=== PATIENT | female | born 1990 | race American Indian/Alaskan Native ===

== ENCOUNTER → 2025-10-06 | Outpatient (CLI) | payer MEDICARE, MEDICAID, SELFPAY | END | disposition home or self-care (01) | LOC: MRI 14:11 | PROVIDERS: Referring Provider Nurse Practitioner Family; Visit Provider Nurse Practitioner Family | DX: S83.421A Sprain of lateral collateral ligament of right knee, initial encounter (principal); M25.562 Pain in left knee; G60.0 Hereditary motor and sensory neuropathy; R29.898 Other symptoms and signs involving the musculoskeletal system | CPT/HCPCS: 73721 ==